=== PATIENT | female | born 1980 ===

== ENCOUNTER → 2022-11-26 12:00 | Outpatient (CLI) | payer OTHER, SELFPAY ==
--- NOTE | 2022-11-26 12:03 | DI.RAD.S_ITS ---
PROCEDURE: XR LUMBAR SPINE 2-3V INDICATIONS: low back pain TECHNIQUE: 3 views of the lumbar spine were acquired. COMPARISON: None. FINDINGS: Bones: 5 [id number] vertebrae are present. There is normal bony alignment. No vertebral body compression fractures. No suspicious bony lesions. Soft tissues: Overlying bowel gas pattern is normal. No suspicious soft tissue calcifications. IMPRESSION: No compression fracture or spondylolisthesis in lumbar spine. Dictated by: Chung Lang M.D. on 11/26/2022 at 13:42 Approved by: Chung Lang M.D. on 11/26/2022 at 13:46
--- NOTE | 2022-11-26 12:03 | DI.RAD.S_ITS ---
PROCEDURE: XR HIP W PEL IF DONE RT 2V INDICATIONS: rt hip pain TECHNIQUE: AP pelvis with lateral view(s) of the right hip(s). COMPARISON: None. FINDINGS: Bones: No fractures or dislocations. Pelvic ring appears intact. No suspicious bony lesions. Soft tissues: The visualized bowel gas pattern is normal. No suspicious soft tissue calcifications. Intrauterine device is noted. IMPRESSION: Unremarkable radiographic examination of right hip and pelvis. If indicated, MRI of hip can be done for evaluation of internal derangement. Dictated by: Chung Lang M.D. on 11/26/2022 at 13:42 Approved by: Chung Lang M.D. on 11/26/2022 at 13:42
[2022-11-26 13:35] LABS: Add Manual Diff / Slide Review NO; Basophils Absolute Auto 0 /uL (0-100); Basophils Percent Auto 0.5 % (0-2); Eosinophils Absolute Auto 100 /uL (0-450); Eosinophils Percent Auto 1.3 % (2-4); Hematocrit 41.4 % (36-46); Hemoglobin 13.9 g/dL (12.0-16.0); Lymphocytes Absolute Auto 1700 /uL (1100-4500); Lymphocytes Percent Auto 21.8 % (25-40); Mean Corpuscular HGB Conc 33.5 % (30-36); Mean Corpuscular Hemoglobin 31.2 PG (26-34); Mean Corpuscular Volume 93.1 fL (80-100); Monocytes Absolute Auto 400 /uL (0-900); Neutrophils Absolute Auto 5500 /uL (1500-7000); Neutrophils Percent Auto 71.4 % (50-75); Platelet Count 255 X10^3/uL (150-400); Red Blood Cell Count 4.45 X10^6/uL (4.0-5.2); Red Cell Distribution Width 13.5 % (11.6-14.8); White Blood Cell Count 7.7 X10^3/uL (4.5-11.0)
[2022-11-26 13:43] LABS: Alanine Aminotransferase 25 IU/L (<35); Albumin 4.3 g/dL (3.5-5.0); Albumin Globulin Ratio 1.2 (1.0-2.8); Alkaline Phosphatase 87 U/L (38-126); Aspartate Aminotransferase 28 IU/L (14-36); BUN Creatinine Ratio 13.6 (6-22); Bilirubin Total 0.3 mg/dL (0.2-1.3); Blood Urea Nitrogen 8 mg/dL (7-17); Calcium 8.6 mg/dL (8.4-10.2); Carbon Dioxide 28 mmol/L (22-32); Chloride 102 mmol/L (98-107); Cholesterol 229 mg/dL (140-199); Estimated Glomerular Filt Rate > 60 mL/min (>60); Globulin 3.5 g/dL (1.7-4.1); Glucose 107 mg/dL (70-100); HDL Cholesterol 59 mg/dL (40-60); HEMOLYSIS < 15 (0-50); LDL Cholesterol Calculated 144 mg/dL (<100); Potassium 3.7 mmol/L (3.4-5.1); Sodium 137 mmol/L (137-145); Total Protein 7.8 g/dL (6.3-8.2); Triglycerides 130 mg/dL (35-150)
[2022-11-26 13:58] LABS: Prolactin 14.1 ng/mL (3.0-18.6)
[2022-11-26 14:14] LABS: TSH w/ Reflex to FT4 2.41 uIU/mL (0.47-4.68)
[2022-11-26 14:38] LABS: Pregnancy Test Urine Negative (Negative)
[2022-11-27 07:10] LABS: Labcorp Hemoglobin (Hb) A1c 5.4 % (4.8-5.6)
== END ==
PROVIDERS: PCP Family Medicine; Referring Provider Family Medicine; Visit Provider Family Medicine
DX: M25.551 Pain in right hip (principal); M54.50 Low back pain, unspecified; E66.9 Obesity, unspecified; N64.52 Nipple discharge; N92.0 Excessive and frequent menstruation with regular cycle; R53.83 Other fatigue; N64.59 Other signs and symptoms in breast
CPT/HCPCS: 36415; 72100; 73502; 80053; 80061; 81025; 83036; 84146; 84443; 85025

== ENCOUNTER → 2022-12-14 10:04 | Outpatient (CLI) | payer OTHER, SELFPAY ==
--- NOTE | 2022-12-14 10:05 | DI.MG.S_ITS ---
BILATERAL DIGITAL DIAGNOSTIC MAMMOGRAM 3D/2D: 12/14/2022 CLINICAL: Baseline exam. No prior exams were available for comparison. Both breasts are heterogeneously dense, which may obscure small masses (category c / 51-75% glandular tissue). No significant masses, calcifications, or other findings are seen in either breast. IMPRESSION: INCOMPLETE: NEEDS ADDITIONAL IMAGING EVALUATION There is no abnormality seen in either breast to correspond with the non-bloody discharge from the nipple, however, ultrasound is recommended. Based on the Tyrer Cuzick model (a risk assessment model) the patient's lifetime risk is 15.1% and her 10 year risk is 2.5%. According to the ACR, ACS, and NCCN guidelines, an annual breast MRI exam along with mammogram is recommended if the patient's lifetime risk is 20% or greater. This exam was interpreted at Station ID: [id number]. NOTE: For mammograms, a report in lay terms will be sent to the patient. Approximately 15% of breast malignancies will not be visualized mammographically. In the management of a palpable breast mass, a negative mammogram must not discourage biopsy of a clinically suspicious lesion. Electronically Signed By: Tu Chong M.D. lc/:12/14/2022 11:12:17 ACR BI-RADS Category 0: Incomplete [id number]
--- NOTE | 2022-12-14 10:05 | DI.US.S_ITS ---
ULTRASOUND OF LEFT BREAST: 12/14/2022 CLINICAL: Nipple discharge mastodynia. Comparison is made to exam dated: 12/14/2022 mammogram - [facility]. Color flow and real-time ultrasound of the left breast were performed. Mittal scale images of the real-time examination were reviewed. There is a possible 0.3 cm x 0.3 cm x 0.2 cm micro cyst in the left breast central to the nipple in the retroareolar region. This correlates as an incidental finding. Another 5mm septated benign cyst is seen in the retroareolar region. IMPRESSION: PROBABLY BENIGN The possible 0.3 cm x 0.3 cm x 0.2 cm micro cyst in the left breast resembles apocrine metaplasia and is probably benign. A follow-up ultrasound in 6 months is recommended. This is incidental. There is no abnormality seen in the left breast to correspond with the non-bloody discharge from the nipple, however, clinical correlation and clinical followup are recommended. A follow-up ultrasound in 6 months is recommended to demonstrate stability. This exam was interpreted at Station ID: [id number]. Electronically Signed By: Tu Chong M.D. lc/:12/14/2022 11:14:10 letter sent: Followup Recommended Ultrasound BI-RADS: 3 Probably benign
--- NOTE | 2022-12-14 10:05 | DI.US.S_ITS ---
ULTRASOUND OF RIGHT BREAST: 12/14/2022 CLINICAL: Nipple discharge - mastodynia. Comparison is made to exam dated: 12/14/2022 mammogram - [facility]. Color flow and real-time ultrasound of the right breast were performed. Mittal scale images of the real-time examination were reviewed. No significant abnormalities were seen sonographically in the right breast. IMPRESSION: NEGATIVE There is no sonographic evidence of malignancy. There is no abnormality seen in the right breast to correspond with the non-bloody discharge from the nipple, however, clinical correlation and clinical followup are recommended. This exam was interpreted at Station ID: [id number]. Electronically Signed By: Tu Chong M.D. lc/:12/14/2022 11:14:56 letter sent: Clinical Evaluation Ultrasound BI-RADS: 1 Negative
== END ==
PROVIDERS: Family Provider Family Medicine; PCP Family Medicine; Referring Provider Family Medicine; Visit Provider Family Medicine
DX: N64.4 Mastodynia (principal); N63.0 Unspecified lump in unspecified breast; N64.52 Nipple discharge; R92.2 Inconclusive mammogram
CPT/HCPCS: 76642; 77066; G0279

== ENCOUNTER 2023-02-15 09:00 | Outpatient (RCR) | payer OTHER, SELFPAY ==
--- NOTE | 2023-01-14 11:00 | PT.OIE ---
Current Diagnoses Pain in right hip (01/14/23) Stiffness of right hip, not elsewhere classified (01/14/23) Stiffness of other specified joint, not elsewhere classified (01/14/23) Low back pain, unspecified (01/14/23) Muscle weakness (generalized) (01/14/23) Past Medical History (Last Updated 12/24/22 @ 19:55 by Dorina Zuñiga) Allergies Anxiety Chronic back pain Depression Eczema Hemorrhoid (~2009) Herpes Irregular menstrual cycle IUD (intrauterine device) in place Psoriasis Rosacea Past Surgical History (Last Updated 12/24/22 @ 19:55 by Dorina Zuñiga) Anesthesia History of cholecystectomy (~2009) History of surgery on arm (~2018) Tumor (~1996) Visit Care Team Role Provider Type Chris Rod DO Attending Provider Physician Family Provider Primary Care Provider Referring Provider Specialty: Family Practice Address: [address] [place] [address], [address], [facility] Email: [email or web address] Physical Therapy Initial Evaluation PT-OP-A Visit Information Start: 01/14/23 17:19 Freq: Status: Active Protocol: Document 01/14/23 10:15 DCW (Rec: 01/14/23 17:30 DCW [id number]) Out-Patient Physical Therapy Visit Information Visit Information Visit Type Initial Evaluation Visit Start Time 10:15 Visit Stop Time 11:00 Total Visit Minutes 45 Visit Number 1 Number of FIELD MAP TECHNICIAN Visits 0 Evaluation Information Evaluation Date 01/14/23 PT-OP-B Current Condition Start: 01/14/23 17:19 Freq: Status: Active Protocol: Document 01/14/23 10:15 DCW (Rec: 01/14/23 17:30 DC [id number]) Current Condition History of Current Condition Onset Date Multi-year history Current Complaints Low back and right lateral hip pain History of Current Condition Pt is a 42 year old female presenting with a multi-year history of low back and hip pain, largely worsening over the past five years, following the of her daughter. Notes she is not really limited in her participation in activities, but then notes she is unable to do planks due to back pain, and is limited to running ~1 mile, down from her prior usual of 4-5 miles. Stretching does help her feel somewhat better, and notes she has less tightness when up and moving around, but tightens up as soon as she sits down. Already performs a lot of stretching, including hamstring stretches, seated figure-4s, butterfly stretch, lunges, downward dogs, and cat /cow. Does note that she was diagnosed with a ruptured disc , she believes it is the L5-S1 disc, which happened years ago, but there was no specific injury. PT-OP-C Subjective Start: 01/14/23 17:19 Freq: Status: Active Protocol: Document 01/14/23 10:15 DCW (Rec: 01/14/23 17:30 DCW [id number]) OP-PT Subjective Patient Comments Patient Comments Going from sitting to lying and then getting back up is really the worst on my back. Patient Reported Progress Worse Patient Questionnaires Oswestry Low Back Index Oswestry Score 11/50 = 22% Oswestry Impairment 20 to 39% Impaired (Score 20- 39) PT-OP-F Manual Assessment Start: 01/14/23 17:19 Freq: Status: Active Protocol: Document 01/14/23 10:15 DCW (Rec: 01/15/23 14:05 DCW [id number]) Manual Assessments Soft Tissue Assessment Soft Tissue Mobility Assessment Tenderness to palpation 3/4: Wincing and withdraw along right ITB, piriformis, hip flexors, lumbar paraspinals Joint Mobility Assessment Joint Mobility Assessment Wincing and withdraw and hypomobility with P->A mobiolizations of L4, L5. PT-OP-K Range of Motion Start: 01/14/23 17:19 Freq: Status: Active Protocol: Document 01/14/23 10:15 DCW (Rec: 01/15/23 14:05 DCW [id number]) Lumbar Spine Range of Motion Lumbar Spine Active Degrees Testing Position Standing Flexion 60 Extension 15 Lateral Flexion Left 47 Lateral Flexion Right 50 ROM Limitations Soft Tissue Tightness,Muscle Weakness,Muscle Tone,Pain Comments Lateral flexion measured in cm from fingertips to floor Pain in right lateral hip with left lateral flexion PT-OP-L Special Tests Start: 01/14/23 17:19 Freq: Status: Active Protocol: Document 01/14/23 10:15 DCW (Rec: 01/15/23 14:05 DCW [id number]) Special Tests Lumbar Spine Special Tests Vertical Spine Loading Test Results Negative Straight Leg Raise Test Results Negative Slump Test Results Negative Manual Traction Test Results Negative Compression Test Results Negative A-P Shearing Test Results Negative Hip Special Tests Mariana's Test Test Results Positive R CORTEZ Test Results Positive R ipsilateral pain in lateral hip, low back PT-OP-Q Treatments Start: 01/14/23 17:19 Freq: Status: Active Protocol: Document 01/14/23 10:15 DCW (Rec: 01/14/23 17:33 DCW [id number]) Therapeutic Exercises Prone Exercises Piriformis stretch Prone Exercise Name Modified pigeon piriformis stretch Side right Standing Exercises Pallof press Standing Exercise Name Pallof press Resistance Lv 3 ITB stretch Standing Exercise Name ITB wall stretch Side right PT-OP-T Assessment and Plan Start: 01/14/23 17:19 Freq: Status: Active Protocol: Document 01/14/23 10:15 DCW (Rec: 01/15/23 15:33 DCW [id number]) Physical Therapy Assessment Rehab Potential Rehabilitation Potential Good Evaluation Complexity Number of Personal Factors/Comorbidities 1-2 Number of Body Systems Impaired 3 Clinical Presentation at Evaluation Unstable Impairments Impairments Activity Tolerance,Functional Activities,Functional Mobility ,Pain,ROM,Soft Tissue Mobility ,Tone Goals Three Impairment Pt limited to 1-1.5 miles running Senior Care Goal (LTG) Pt to return to prior functional level of 4-5 mile runs without increased hip or back pain. LTG Duration 04/14/23 Two Impairment Moderate tone in tight piriformis, ITB/TFL Senior Care Goal (LTG) Pt to decrease hip and lumbar tone in order to improve lumbar extension to at least 20? LTG Duration 04/14/23 One Impairment Pt does not have an appropriate home exercise program Short Term Goal (STG) Pt to be independent and compliant with an appropriate home exercise program STG Duration 03/01/23 Assessment Summary Assessment Pt presents with signs and symptoms consistent with referring diagnosis. Presents with mild limitations in lumbar mobility, and moderate increased tone in right hip, especially in her TFL/ITB, Piriformis, and hip flexors. Pt will likely benefit from skilled therapy focusing on STM, flexibility, joint mobilizations, hip and core strengthening, and return to prior activity level. Pt history is complicated by self -reported history of a lumbar disc rupture, she believes in the area of L5-S1. Physical Therapy Plan Frequency and Duration Frequency of Treatment 2x/Week Plan of Care Start Date 01/14/23 Plan of Care End Date 04/14/23 Therapeutic Interventions Therapeutic Interventions Gait Training,Home Exercise Program,Joint Mobilizations, Manual Therapy,Neuromuscular Re-education,Patient/Caregiver Education,Sensory Integration ,Soft Tissue Mobilization, Therapeutic Activities, Therapeutic Exercises Modalities Cold Pack/Ice Massage,Electric Stimulation,Hot Packs, Ultrasound Next Visit Focus/Plan Next Note Type Treatment Note Next Visit Plan STM/stretching, core strengthening, joint mobilizations, STM
--- NOTE | 2023-01-14 11:00 | PT.OPPOC ---
Physical, Occupational & Speech Therapy At [facility] Current Diagnoses Pain in right hip (01/14/23) Stiffness of right hip, not elsewhere classified (01/14/23) Stiffness of other specified joint, not elsewhere classified (01/14/23) Low back pain, unspecified (01/14/23) Muscle weakness (generalized) (01/14/23) Visit Care Team Role Provider Type Chris Rod DO Attending Provider Physician Family Provider Primary Care Provider Referring Provider Specialty: [facility] Practice Address: [address] [place] [address], [address], [facility] Email: [email or web address] Plan Of Care PT-OP-T Assessment and Plan Start: 01/14/23 17:19 Freq: Status: Active Protocol: Document 01/14/23 10:15 DCW (Rec: 01/15/23 15:33 DCW [id number]) Physical Therapy Assessment Rehab Potential Rehabilitation Potential Good Evaluation Complexity Number of Personal Factors/Comorbidities 1-2 Number of Body Systems Impaired 3 Clinical Presentation at Evaluation Unstable Impairments Impairments Activity Tolerance,Functional Activities,Functional Mobility ,Pain,ROM,Soft Tissue Mobility ,Tone Goals Three Impairment Pt limited to 1-1.5 miles running Mitochondrial Disorders Counselor Goal (LTG) Pt to return to prior functional level of 4-5 mile runs without increased hip or back pain. LTG Duration 04/14/23 Two Impairment Moderate tone in tight piriformis, ITB/TFL Shelter Goal (LTG) Pt to decrease hip and lumbar tone in order to improve lumbar extension to at least 20? LTG Duration 04/14/23 One Impairment Pt does not have an appropriate home exercise program Short Term Goal (STG) Pt to be independent and compliant with an appropriate home exercise program STG Duration 03/01/23 Assessment Summary Assessment Pt presents with signs and symptoms consistent with referring diagnosis. Presents with mild limitations in lumbar mobility, and moderate increased tone in right hip, especially in her TFL/ITB, Piriformis, and hip flexors. Pt will likely benefit from skilled therapy focusing on STM, flexibility, joint mobilizations, hip and core strengthening, and return to prior activity level. Pt history is complicated by self -reported history of a lumbar disc rupture, she believes in the area of L5-S1. Physical Therapy Plan Frequency and Duration Frequency of Treatment 2x/Week Plan of Care Start Date 01/14/23 Plan of Care End Date 04/14/23 Therapeutic Interventions Therapeutic Interventions Gait Training,Home Exercise Program,Joint Mobilizations, Manual Therapy,Neuromuscular Re-education,Patient/Caregiver Education,Sensory Integration ,Soft Tissue Mobilization, Therapeutic Activities, Therapeutic Exercises Modalities Cold Pack/Ice Massage,Electric Stimulation,Hot Packs, Ultrasound Next Visit Focus/Plan Next Note Type Treatment Note Next Visit Plan STM/stretching, core strengthening, joint mobilizations, STM Plan of Care Dates Plan of Care Start Date 01/14/23 Plan of Care End Date 04/14/23 Electronically Signed by: Sourav White, PT 01/15/23 1732 If you are in agreement with this Plan of Care, please return a signed and dated copy. I have reviewed this Plan of Care and certify that the skilled therapy services above are required to meet the patient?s needs. Physician Signature Date Printed Name and Credentials Clinical Instructor Signature Printed Name and Credentials
--- NOTE | 2023-01-17 13:30 | PT.OTN ---
Current Diagnoses Pain in right hip (01/17/23) Stiffness of right hip, not elsewhere classified (01/17/23) Stiffness of other specified joint, not elsewhere classified (01/17/23) Low back pain, unspecified (01/17/23) Muscle weakness (generalized) (01/17/23) Physical Therapy Treatment Note PT-OP-A Visit Information Start: 01/14/23 17:19 Freq: Status: Active Protocol: Document 01/17/23 12:50 SP (Rec: 01/17/23 14:07 SP [id number]) Out-Patient Physical Therapy Visit Information Visit Information Visit Type Treatment Note Visit Start Time 12:50 Visit Stop Time 13:30 Total Visit Minutes 40 Visit Number 2 Number of BODY FORMER Visits 1 Evaluation Information Evaluation Date 01/14/23 PT-OP-B Current Condition Start: 01/14/23 17:19 Freq: Status: Active Protocol: Document 01/14/23 10:15 DCW (Rec: 01/14/23 17:30 DCW [id number]) Current Condition History of Current Condition Onset Date Multi-year history Current Complaints Low back and right lateral hip pain History of Current Condition Pt is a 42 year old female presenting with a multi-year history of low back and hip pain, largely worsening over the past five years, following the of her daughter. Notes she is not really limited in her participation in activities, but then notes she is unable to do planks due to back pain, and is limited to running ~1 mile, down from her prior usual of 4-5 miles. Stretching does help her feel somewhat better, and notes she has less tightness when up and moving around, but tightens up as soon as she sits down. Already performs a lot of stretching, including hamstring stretches, seated figure-4s, butterfly stretch, lunges, downward dogs, and cat /cow. Does note that she was diagnosed with a ruptured disc , she believes it is the L5-S1 disc, which happened years ago, but there was no specific injury. PT-OP-C Subjective Start: 01/14/23 17:19 Freq: Status: Active Protocol: Document 01/17/23 12:50 SP (Rec: 01/17/23 14:07 SP [id number]) OP-PT Subjective Patient Comments Patient Comments Pt reports did well post last tx and stretching given for HEP. R hip pain worse sit to long, stationary stand >10 min ache and pain. PT-OP-F Manual Assessment Start: 01/14/23 17:19 Freq: Status: Active Protocol: Document 01/14/23 10:15 DCW (Rec: 01/15/23 14:05 DCW [id number]) Manual Assessments Soft Tissue Assessment Soft Tissue Mobility Assessment Tenderness to palpation 3/4: Wincing and withdraw along right ITB, piriformis, hip flexors, lumbar paraspinals Joint Mobility Assessment Joint Mobility Assessment Wincing and withdraw and hypomobility with P->A mobiolizations of L4, L5. PT-OP-K Range of Motion Start: 01/14/23 17:19 Freq: Status: Active Protocol: Document 01/14/23 10:15 DCW (Rec: 01/15/23 14:05 DCW [id number]) Lumbar Spine Range of Motion Lumbar Spine Active Degrees Testing Position Standing Flexion 60 Extension 15 Lateral Flexion Left 47 Lateral Flexion Right 50 ROM Limitations Soft Tissue Tightness,Muscle Weakness,Muscle Tone,Pain Comments Lateral flexion measured in cm from fingertips to floor Pain in right lateral hip with left lateral flexion PT-OP-L Special Tests Start: 01/14/23 17:19 Freq: Status: Active Protocol: Document 01/14/23 10:15 DCW (Rec: 01/15/23 14:05 DCW [id number]) Special Tests Lumbar Spine Special Tests Vertical Spine Loading Test Results Negative Straight Leg Raise Test Results Negative Slump Test Results Negative Manual Traction Test Results Negative Compression Test Results Negative A-P Shearing Test Results Negative Hip Special Tests Mariana's Test Test Results Positive R CORTEZ Test Results Positive R ipsilateral pain in lateral hip, low back PT-OP-Q Treatments Start: 01/14/23 17:19 Freq: Status: Active Protocol: Document 01/17/23 12:50 SP (Rec: 01/17/23 14:07 SP [id number]) Therapeutic Exercises Supine Exercises Jacek stretch Supine Exercise Name reviewed self stretch performs home helpful Side right Reps/Minutes 20SH Comments cued/ ed TA draw in/PPT for no LB recruitment- good response FIg 4 Supine Exercise Name trialed in PT Side right Equipment Used R foot over opp knee/thigh Reps/Minutes 10SH- cued TA/PPT neutral LS Comments good anterolateral stretch at first then back started to hurt piriformis stretch Supine Exercise Name trialed in PT Side right Reps/Minutes 30SH Comments good posterolateral hip stretch vs pigeon pose Prone Exercises Piriformis stretch Prone Exercise Name Modified pigeon piriformis stretch- HEP reviewed Side right Reps/Minutes 20 SH Comments good feedback stretch Sidelying Exercises openbook Sidelying Exercise Name review a self stretch warm up am Side right Reps/Minutes x5 Comments good decrease back tension Standing Exercises Pallof press Standing Exercise Name Pallof press-HEP reviewed Resistance Lv 3 green Reps/Minutes 15 reps each side Comments cued soft knee, elongated posture press outfrom navel, TA fac ITB stretch Standing Exercise Name ITB wall stretch Side right Reps/Minutes 20 SH x2 Comments Ed various angles for comfort stretch, not deep jt discomfort. Manual Therapy Treatment Soft Tissue Mobilization R hip Body Location R piriformis, TFL,ITB Mobilization Type Strumming,Sustained Pressure, Other Intensity/Depth Moderate Body Position L Sidelying Comments manual strumming and use MWM clamshell/reverse clamshell, rolling pin ITB * good feedback response Joint Mobilizations R hip Joint sustained holds with strap/ towel Direction lateral, inferolateral ( piriformis position) Grade II Body Position Hooklying Reps/Duration 2 min total Comments MWM with hip IR Self-Care/Home Management Treatment Education Other Education Extra time spent ed and use pillow support during sidelying and supine for R hip and LB support. Side: pillows under head, lateral upper ribcage, between BUE and BLEs, anterior/post hip (while on R , not needed L); supine: cascade built up pillows under ischialtuberosity and to calves into hooklying- good feedback response decrease R hip pain. Added clamshell & reverse clamshell. PT-OP-T Assessment and Plan Start: 01/14/23 17:19 Freq: Status: Active Protocol: Document 01/17/23 12:50 SP (Rec: 01/17/23 14:07 SP [id number]) Physical Therapy Assessment Goals Three Impairment Pt limited to 1-1.5 miles running Halfway Goal (LTG) Pt to return to prior functional level of 4-5 mile runs without increased hip or back pain. LTG Duration 04/14/23 Two Impairment Moderate tone in tight piriformis, ITB/TFL Halfway Goal (LTG) Pt to decrease hip and lumbar tone in order to improve lumbar extension to at least 20? LTG Duration 04/14/23 One Impairment Pt does not have an appropriate home exercise program Short Term Goal (STG) Pt to be independent and compliant with an appropriate home exercise program STG Duration 03/01/23 Assessment Summary Assessment Pt good feedback response to manual and ed with performance of self massage use ball wall and stretching review. Pt reports use pillow support in various positions helped comfort to R hip for sleeping and added clamshell/reverse clamshell to HEP today for support strengthening with good feedback painfree and muscle tiring. Pt reports hopes to get more exercises to help strengthen and decrease deeper R hip pain standing/ sitting to do daily chores. Physical Therapy Plan Frequency and Duration Frequency of Treatment 2x/Week Plan of Care Start Date 01/14/23 Plan of Care End Date 04/14/23 Therapeutic Interventions Therapeutic Interventions Gait Training,Home Exercise Program,Joint Mobilizations, Manual Therapy,Neuromuscular Re-education,Patient/Caregiver Education,Sensory Integration ,Soft Tissue Mobilization, Therapeutic Activities, Therapeutic Exercises Modalities Cold Pack/Ice Massage,Electric Stimulation,Hot Packs, Ultrasound Next Visit Focus/Plan Next Note Type Treatment Note Next Visit Plan Recheck clamshell, reverse clamshell added last. tx POC: STM/stretching, core strengthening, joint mobilizations, STM
--- NOTE | 2023-01-30 10:00 | PT.OTN ---
Current Diagnoses Pain in right hip (01/30/23) Stiffness of right hip, not elsewhere classified (01/30/23) Stiffness of other specified joint, not elsewhere classified (01/30/23) Low back pain, unspecified (01/30/23) Muscle weakness (generalized) (01/30/23) Physical Therapy Treatment Note PT-OP-A Visit Information Start: 01/14/23 17:19 Freq: Status: Active Protocol: Document 01/30/23 09:05 SP (Rec: 01/30/23 10:04 SP [id number]) Out-Patient Physical Therapy Visit Information Visit Information Visit Type Treatment Note Visit Note Youth son attended tx, quiet in chair. Visit Start Time 09:05 Visit Stop Time 10:00 Total Visit Minutes 55 Visit Number 3 Number of BUSINESS SEGMENT MANAGER Visits 2 Evaluation Information Evaluation Date 01/14/23 PT-OP-B Current Condition Start: 01/14/23 17:19 Freq: Status: Active Protocol: Document 01/14/23 10:15 DCW (Rec: 01/14/23 17:30 DCW [id number]) Current Condition History of Current Condition Onset Date Multi-year history Current Complaints Low back and right lateral hip pain History of Current Condition Pt is a 42 year old female presenting with a multi-year history of low back and hip pain, largely worsening over the past five years, following the of her daughter. Notes she is not really limited in her participation in activities, but then notes she is unable to do planks due to back pain, and is limited to running ~1 mile, down from her prior usual of 4-5 miles. Stretching does help her feel somewhat better, and notes she has less tightness when up and moving around, but tightens up as soon as she sits down. Already performs a lot of stretching, including hamstring stretches, seated figure-4s, butterfly stretch, lunges, downward dogs, and cat /cow. Does note that she was diagnosed with a ruptured disc , she believes it is the L5-S1 disc, which happened years ago, but there was no specific injury. PT-OP-C Subjective Start: 01/14/23 17:19 Freq: Status: Active Protocol: Document 01/30/23 09:05 SP (Rec: 01/30/23 10:04 SP [id number]) OP-PT Subjective Patient Comments Patient Comments Pt arrives in back pain 5-6/10 with stiff walking, lateral wt shifting gait. She stated had to stand for approx 1-1.5 hrs at son's baseball practice , bleachers were wet so couldn 't sit. She tried stretching and hot shower to help. PT-OP-F Manual Assessment Start: 01/14/23 17:19 Freq: Status: Active Protocol: Document 01/14/23 10:15 DCW (Rec: 01/15/23 14:05 DCW [id number]) Manual Assessments Soft Tissue Assessment Soft Tissue Mobility Assessment Tenderness to palpation 3/4: Wincing and withdraw along right ITB, piriformis, hip flexors, lumbar paraspinals Joint Mobility Assessment Joint Mobility Assessment Wincing and withdraw and hypomobility with P->A mobiolizations of L4, L5. PT-OP-K Range of Motion Start: 01/14/23 17:19 Freq: Status: Active Protocol: Document 01/14/23 10:15 DCW (Rec: 01/15/23 14:05 DCW [id number]) Lumbar Spine Range of Motion Lumbar Spine Active Degrees Testing Position Standing Flexion 60 Extension 15 Lateral Flexion Left 47 Lateral Flexion Right 50 ROM Limitations Soft Tissue Tightness,Muscle Weakness,Muscle Tone,Pain Comments Lateral flexion measured in cm from fingertips to floor Pain in right lateral hip with left lateral flexion PT-OP-L Special Tests Start: 01/14/23 17:19 Freq: Status: Active Protocol: Document 01/14/23 10:15 DCW (Rec: 01/15/23 14:05 DCW [id number]) Special Tests Lumbar Spine Special Tests Vertical Spine Loading Test Results Negative Straight Leg Raise Test Results Negative Slump Test Results Negative Manual Traction Test Results Negative Compression Test Results Negative A-P Shearing Test Results Negative Hip Special Tests [place]'s Test Test Results Positive R CORTEZ Test Results Positive R ipsilateral pain in lateral hip, low back PT-OP-Q Treatments Start: 01/14/23 17:19 Freq: Status: Active Protocol: Document 01/30/23 09:05 SP (Rec: 01/30/23 10:04 SP [id number]) Therapeutic Exercises Supine Exercises TA KFO Supine Exercise Name TA initiated in PT Side bilateral Reps/Minutes x10 Comments cued PPT & TA good response tolerant range segmental bridge Supine Exercise Name reviewed self HEP performed help back loosen up Reps/Minutes x2 reps Comments improved ROM and helped am at home august Supine Exercise Name initiated in PT Reps/Minutes 10 reps alternating BLE Comments cued PPT, slow movement- initial lift each LE pop in R hip then painfree LTR Supine Exercise Name initiated in PT for lumbar ROM Side bilateral Reps/Minutes x10, last 4 reps hold for stretch FIg 4 Supine Exercise Name reviewed/add for HEP Side right Equipment Used R foot over opp knee/thigh Reps/Minutes 10SH- cued TA/PPT neutral LS Comments good anterolateral stretch & ok on hip/back piriformis stretch Supine Exercise Name reviewed/add for HEP Side right Reps/Minutes 30SH Comments good posterolateral hip stretch Prone Exercises pigeon pose Prone Exercise Name recheck future appt, self stretch Manual Therapy Treatment Soft Tissue Mobilization back Body Location B QL, ES Comments good response R hip Body Location R>L piriformis Mobilization Type Strumming,Sustained Pressure, Other Intensity/Depth Moderate Body Position Prone Comments manual strumming,MWM PROM hip IR/ ER Manual Traction LS Details w/ strap, unilateral long axis pull Body Position Hooklying Comments w/ strap sustained distraction the MWM pelvic tilt small range good feedback response, long axis pull good response will ask help home. PT-OP-R Modalities Start: 01/30/23 16:25 Freq: Status: Active Protocol: Document 01/30/23 09:05 SP (Rec: 01/30/23 16:26 SP [id number]) Electric Stimulation Electric Stimulation IFC Body Location L2-5 Duration (Minutes) 10 Intensity 9 High/Low High Cycle Continuous Patient Position Sitting Combined With Heat/Cold Hot Pack Comments Good feedback response, feels good decreased back pain end tx. PT-OP-T Assessment and Plan Start: 01/14/23 17:19 Freq: Status: Active Protocol: Document 01/30/23 09:05 SP (Rec: 01/30/23 10:04 SP [id number]) Physical Therapy Assessment Goals Three Impairment Pt limited to 1-1.5 miles running Retirement Goal (LTG) Pt to return to prior functional level of 4-5 mile runs without increased hip or back pain. LTG Duration 04/14/23 Two Impairment Moderate tone in tight piriformis, ITB/TFL Retirement Goal (LTG) Pt to decrease hip and lumbar tone in order to improve lumbar extension to at least 20? LTG Duration 04/14/23 One Impairment Pt does not have an appropriate home exercise program Short Term Goal (STG) Pt to be independent and compliant with an appropriate home exercise program STG Duration 03/01/23 Assessment Summary Assessment Pt responded well to STMs, manual traction, stretching review and added AROM/basic core fac exercises to decrease back tension and increase abdominal bracing support. Education provided for log roll technique to allow spinal alignment support sit<> supine, sit<>prone. Pt accepted suggestion for ES and MHP end tx for pain reduction support with overall pain reduction 5-6 to 2/10 leaving. I feel a whole lot better. Pt good understandind ther ex today and declined HOs. Cued for allow arm swing walking with TA awareness but trying to allow segmental mobility, good response and demonstration TS, LS more rotation with arm swing leaving. Physical Therapy Plan Frequency and Duration Frequency of Treatment 2x/Week Plan of Care Start Date 01/14/23 Plan of Care End Date 04/14/23 Therapeutic Interventions Therapeutic Interventions Gait Training,Home Exercise Program,Joint Mobilizations, Manual Therapy,Neuromuscular Re-education,Patient/Caregiver Education,Sensory Integration ,Soft Tissue Mobilization, Therapeutic Activities, Therapeutic Exercises Modalities Cold Pack/Ice Massage,Electric Stimulation,Hot Packs, Ultrasound Next Visit Focus/Plan Next Note Type Treatment Note Next Visit Plan Recheck clamshell, reverse clamshell, core supine ther ex added last couple tx. POC: STM/stretching, core strengthening, joint mobilizations, STM
--- NOTE | 2023-02-07 11:45 | PT.OTN ---
Current Diagnoses Pain in right hip (02/07/23) Stiffness of right hip, not elsewhere classified (02/07/23) Stiffness of other specified joint, not elsewhere classified (02/07/23) Low back pain, unspecified (02/07/23) Muscle weakness (generalized) (02/07/23) Physical Therapy Treatment Note PT-OP-A Visit Information Start: 01/14/23 17:19 Freq: Status: Active Protocol: Document 02/07/23 11:00 DCW (Rec: 02/07/23 11:45 DCW [id number]) Out-Patient Physical Therapy Visit Information Visit Information Visit Type Treatment Note Visit Note Youth daughter attended tx, quiet in chair. Visit Start Time 11:00 Visit Stop Time 11:45 Total Visit Minutes 45 Visit Number 4 Number of TRANSPORTATION MECHANIC Visits 0 Evaluation Information Evaluation Date 01/14/23 PT-OP-B Current Condition Start: 01/14/23 17:19 Freq: Status: Active Protocol: Document 01/14/23 10:15 DCW (Rec: 01/14/23 17:30 DCW [id number]) Current Condition History of Current Condition Onset Date Multi-year history Current Complaints Low back and right lateral hip pain History of Current Condition Pt is a 42 year old female presenting with a multi-year history of low back and hip pain, largely worsening over the past five years, following the of her daughter. Notes she is not really limited in her participation in activities, but then notes she is unable to do planks due to back pain, and is limited to running ~1 mile, down from her prior usual of 4-5 miles. Stretching does help her feel somewhat better, and notes she has less tightness when up and moving around, but tightens up as soon as she sits down. Already performs a lot of stretching, including hamstring stretches, seated figure-4s, butterfly stretch, lunges, downward dogs, and cat /cow. Does note that she was diagnosed with a ruptured disc , she believes it is the L5-S1 disc, which happened years ago, but there was no specific injury. PT-OP-C Subjective Start: 01/14/23 17:19 Freq: Status: Active Protocol: Document 02/07/23 11:00 DCW (Rec: 02/07/23 11:45 DCW [id number]) OP-PT Subjective Patient Comments Patient Comments Pt feels that her ITB has improved the most, still boths her, but not to the point it was. Back pain and lateral hip pain, however, are still bothering her quite a bit. Admits she is more sore today after trying to go for a run earlier this week, notes it was very difficult with the pain. PT-OP-F Manual Assessment Start: 01/14/23 17:19 Freq: Status: Active Protocol: Document 01/14/23 10:15 DCW (Rec: 01/15/23 14:05 DCW [id number]) Manual Assessments Soft Tissue Assessment Soft Tissue Mobility Assessment Tenderness to palpation 3/4: Wincing and withdraw along right ITB, piriformis, hip flexors, lumbar paraspinals Joint Mobility Assessment Joint Mobility Assessment Wincing and withdraw and hypomobility with P->A mobiolizations of L4, L5. PT-OP-K Range of Motion Start: 01/14/23 17:19 Freq: Status: Active Protocol: Document 01/14/23 10:15 DCW (Rec: 01/15/23 14:05 DCW [id number]) Lumbar Spine Range of Motion Lumbar Spine Active Degrees Testing Position Standing Flexion 60 Extension 15 Lateral Flexion Left 47 Lateral Flexion Right 50 ROM Limitations Soft Tissue Tightness,Muscle Weakness,Muscle Tone,Pain Comments Lateral flexion measured in cm from fingertips to floor Pain in right lateral hip with left lateral flexion PT-OP-L Special Tests Start: 01/14/23 17:19 Freq: Status: Active Protocol: Document 01/14/23 10:15 DCW (Rec: 01/15/23 14:05 DCW [id number]) Special Tests Lumbar Spine Special Tests Vertical Spine Loading Test Results Negative Straight Leg Raise Test Results Negative Slump Test Results Negative Manual Traction Test Results Negative Compression Test Results Negative A-P Shearing Test Results Negative Hip Special Tests Mar[place]'s Test Test Results Positive R CORTEZ Test Results Positive R ipsilateral pain in lateral hip, low back PT-OP-Q Treatments Start: 01/14/23 17:19 Freq: Status: Active Protocol: Document 02/07/23 11:00 DCW (Rec: 02/07/23 11:45 DCW [id number]) Therapeutic Exercises Sitting Exercises IR/ER Sitting Exercise Name Resisted hip ER/IR Side bilateral Resistance [place] Manual Therapy Treatment Soft Tissue Mobilization back Body Location B QL, ES Comments good response R hip Body Location R>L piriformis, Hip flexor Mobilization Type Strumming,Sustained Pressure, Other Intensity/Depth Moderate Body Position Prone Comments manual strumming,MWM PROM hip IR/ ER Joint Mobilizations R hip Joint sustained holds with strap Direction lateral, inferolateral ( piriformis position) Grade III Body Position Hooklying Reps/Duration 2 min total Comments MWM with hip IR Manual Traction LE Traction Details R hip /c Strap, short-axis, long-axis Body Position Supine PT-OP-R Modalities Start: 01/30/23 16:25 Freq: Status: Active Protocol: Document 01/30/23 09:05 SP (Rec: 01/30/23 16:26 SP [id number]) Electric Stimulation Electric Stimulation IFC Body Location L2-5 Duration (Minutes) 10 Intensity 9 High/Low High Cycle Continuous Patient Position Sitting Combined With Heat/Cold Hot Pack Comments Good feedback response, feels good decreased back pain end tx. PT-OP-T Assessment and Plan Start: 01/14/23 17:19 Freq: Status: Active Protocol: Document 02/07/23 11:00 DCW (Rec: 02/07/23 11:45 DCW [id number]) Physical Therapy Assessment Goals Three Impairment Pt limited to 1-1.5 miles running Care Home Goal (LTG) Pt to return to prior functional level of 4-5 mile runs without increased hip or back pain. LTG Duration 04/14/23 Two Impairment Moderate tone in tight piriformis, ITB/TFL Auto Rental Supervisor Goal (LTG) Pt to decrease hip and lumbar tone in order to improve lumbar extension to at least 20? LTG Duration 04/14/23 One Impairment Pt does not have an appropriate home exercise program Short Term Goal (STG) Pt to be independent and compliant with an appropriate home exercise program STG Duration 03/01/23 Assessment Summary Assessment Pt found substantial relief with R LE traction today, both short-axis and long-axis. Pt also noted today increased anterior hip pain and pinching , along with occasionally feeling like her hip gets stuck, and she has to move around her leg to get it unstuck. These may indicate potential labral involvement. Pt does have referral to Ortho , pt instructed to mention hip problems to ortho during appointment, may benefit from advanced imaging. Physical Therapy Plan Frequency and Duration Frequency of Treatment 2x/Week Plan of Care Start Date 01/14/23 Plan of Care End Date 04/14/23 Therapeutic Interventions Therapeutic Interventions Gait Training,Home Exercise Program,Joint Mobilizations, Manual Therapy,Neuromuscular Re-education,Patient/Caregiver Education,Sensory Integration ,Soft Tissue Mobilization, Therapeutic Activities, Therapeutic Exercises Modalities Cold Pack/Ice Massage,Electric Stimulation,Hot Packs, Ultrasound Next Visit Focus/Plan Next Note Type Treatment Note Next Visit Plan Recheck clamshell, reverse clamshell, core supine ther ex added last couple tx. POC: STM/stretching, core strengthening, joint mobilizations, STM
--- NOTE | 2023-02-11 11:46 | PT.OTN ---
Current Diagnoses Pain in right hip (02/11/23) Stiffness of right hip, not elsewhere classified (02/11/23) Stiffness of other specified joint, not elsewhere classified (02/11/23) Low back pain, unspecified (02/11/23) Muscle weakness (generalized) (02/11/23) Physical Therapy Treatment Note PT-OP-A Visit Information Start: 01/14/23 17:19 Freq: Status: Active Protocol: Document 02/11/23 11:02 DCW (Rec: 02/11/23 11:46 DCW [id number]) Out-Patient Physical Therapy Visit Information Visit Information Visit Type Treatment Note Visit Start Time 11:02 Visit Stop Time 11:45 Total Visit Minutes 43 Visit Number 5 Number of CEMETERY VAULT INSTALLER Visits 0 Evaluation Information Evaluation Date 01/14/23 PT-OP-B Current Condition Start: 01/14/23 17:19 Freq: Status: Active Protocol: Document 01/14/23 10:15 DCW (Rec: 01/14/23 17:30 DCW [id number]) Current Condition History of Current Condition Onset Date Multi-year history Current Complaints Low back and right lateral hip pain History of Current Condition Pt is a 42 year old female presenting with a multi-year history of low back and hip pain, largely worsening over the past five years, following the of her daughter. Notes she is not really limited in her participation in activities, but then notes she is unable to do planks due to back pain, and is limited to running ~1 mile, down from her prior usual of 4-5 miles. Stretching does help her feel somewhat better, and notes she has less tightness when up and moving around, but tightens up as soon as she sits down. Already performs a lot of stretching, including hamstring stretches, seated figure-4s, butterfly stretch, lunges, downward dogs, and cat /cow. Does note that she was diagnosed with a ruptured disc , she believes it is the L5-S1 disc, which happened years ago, but there was no specific injury. PT-OP-C Subjective Start: 01/14/23 17:19 Freq: Status: Active Protocol: Document 02/11/23 11:02 DCW (Rec: 02/11/23 11:46 DCW [id number]) OP-PT Subjective Patient Comments Patient Comments Pt noting everything feels about the same. PT-OP-F Manual Assessment Start: 01/14/23 17:19 Freq: Status: Active Protocol: Document 01/14/23 10:15 DCW (Rec: 01/15/23 14:05 DCW [id number]) Manual Assessments Soft Tissue Assessment Soft Tissue Mobility Assessment Tenderness to palpation 3/4: Wincing and withdraw along right ITB, piriformis, hip flexors, lumbar paraspinals Joint Mobility Assessment Joint Mobility Assessment Wincing and withdraw and hypomobility with P->A mobiolizations of L4, L5. PT-OP-K Range of Motion Start: 01/14/23 17:19 Freq: Status: Active Protocol: Document 01/14/23 10:15 DCW (Rec: 01/15/23 14:05 DCW [id number]) Lumbar Spine Range of Motion Lumbar Spine Active Degrees Testing Position Standing Flexion 60 Extension 15 Lateral Flexion Left 47 Lateral Flexion Right 50 ROM Limitations Soft Tissue Tightness,Muscle Weakness,Muscle Tone,Pain Comments Lateral flexion measured in cm from fingertips to floor Pain in right lateral hip with left lateral flexion PT-OP-L Special Tests Start: 01/14/23 17:19 Freq: Status: Active Protocol: Document 01/14/23 10:15 DCW (Rec: 01/15/23 14:05 DCW [id number]) Special Tests Lumbar Spine Special Tests Vertical Spine Loading Test Results Negative Straight Leg Raise Test Results Negative Slump Test Results Negative Manual Traction Test Results Negative Compression Test Results Negative A-P Shearing Test Results Negative Hip Special Tests [place]'s Test Test Results Positive R CORTEZ Test Results Positive R ipsilateral pain in lateral hip, low back PT-OP-Q Treatments Start: 01/14/23 17:19 Freq: Status: Active Protocol: Document 02/11/23 11:02 DCW (Rec: 02/11/23 11:46 DCW [id number]) Gym Equipment Therapeutic Ball Pelvic tilts Exercise Details Pelvic tilts/circles Ball Size/Color Green - 65 cm Body Position Sitting LTR Exercise Details LTR Ball Size/Color Red - 55 cm Body Position Supine Therapeutic Exercises Standing Exercises Hip Extension Standing Exercise Name Hip Extension Side bilateral Resistance [place] Hip Hiking Standing Exercise Name Hip Hiking Side bilateral Equipment Used 6 step Other Exercises Resisted Ambulation Other Exercise Name Resisted Ambulation Resistance [place] Manual Therapy Treatment Soft Tissue Mobilization back Body Location B QL, ES Comments good response R hip Body Location R>L Hip flexor Mobilization Type Strumming,Sustained Pressure, Other Intensity/Depth Moderate Body Position Hooklying Comments manual strumming Manual Traction LE Traction Details R hip /c Strap, short-axis, long-axis Body Position Supine PT-OP-R Modalities Start: 01/30/23 16:25 Freq: Status: Active Protocol: Document 01/30/23 09:05 SP (Rec: 01/30/23 16:26 SP [id number]) Electric Stimulation Electric Stimulation IFC Body Location L2-5 Duration (Minutes) 10 Intensity 9 High/Low High Cycle Continuous Patient Position Sitting Combined With Heat/Cold Hot Pack Comments Good feedback response, feels good decreased back pain end tx. PT-OP-T Assessment and Plan Start: 01/14/23 17:19 Freq: Status: Active Protocol: Document 02/11/23 11:02 DCW (Rec: 02/11/23 11:46 DCW [id number]) Physical Therapy Assessment Goals Three Impairment Pt limited to 1-1.5 miles running Senior Living Goal (LTG) Pt to return to prior functional level of 4-5 mile runs without increased hip or back pain. LTG Duration 04/14/23 Two Impairment Moderate tone in tight piriformis, ITB/TFL Hot Die Press Feeder Goal (LTG) Pt to decrease hip and lumbar tone in order to improve lumbar extension to at least 20? LTG Duration 04/14/23 One Impairment Pt does not have an appropriate home exercise program Short Term Goal (STG) Pt to be independent and compliant with an appropriate home exercise program STG Duration 03/01/23 Assessment Summary Assessment Pt continues to have increased pain and difficulty with any activity that creates compression through the right hip. LE traction provides some short-term pain relief. Physical Therapy Plan Frequency and Duration Frequency of Treatment 2x/Week Plan of Care Start Date 01/14/23 Plan of Care End Date 04/14/23 Therapeutic Interventions Therapeutic Interventions Gait Training,Home Exercise Program,Joint Mobilizations, Manual Therapy,Neuromuscular Re-education,Patient/Caregiver Education,Sensory Integration ,Soft Tissue Mobilization, Therapeutic Activities, Therapeutic Exercises Modalities Cold Pack/Ice Massage,Electric Stimulation,Hot Packs, Ultrasound Next Visit Focus/Plan Next Note Type Treatment Note Next Visit Plan Recheck clamshell, reverse clamshell, core supine ther ex added last couple tx. POC: STM/stretching, core strengthening, joint mobilizations, STM
--- NOTE | 2023-02-15 09:41 | PT.OTN ---
Current Diagnoses Pain in right hip (02/15/23) Stiffness of right hip, not elsewhere classified (02/15/23) Stiffness of other specified joint, not elsewhere classified (02/15/23) Low back pain, unspecified (02/15/23) Muscle weakness (generalized) (02/15/23) Physical Therapy Treatment Note PT-OP-A Visit Information Start: 01/14/23 17:19 Freq: Status: Active Protocol: Document 02/15/23 09:00 DCW (Rec: 02/15/23 09:40 DCW [id number]) Out-Patient Physical Therapy Visit Information Visit Information Visit Type Discharge Summary Visit Start Time 09:00 Visit Stop Time 09:45 Total Visit Minutes 45 Visit Number 6 Number of [employer] SUPERVISOR Visits 0 Evaluation Information Evaluation Date 01/14/23 PT-OP-B Current Condition Start: 01/14/23 17:19 Freq: Status: Active Protocol: Document 01/14/23 10:15 DCW (Rec: 01/14/23 17:30 DCW [id number]) Current Condition History of Current Condition Onset Date Multi-year history Current Complaints Low back and right lateral hip pain History of Current Condition Pt is a 42 year old female presenting with a multi-year history of low back and hip pain, largely worsening over the past five years, following the of her daughter. Notes she is not really limited in her participation in activities, but then notes she is unable to do planks due to back pain, and is limited to running ~1 mile, down from her prior usual of 4-5 miles. Stretching does help her feel somewhat better, and notes she has less tightness when up and moving around, but tightens up as soon as she sits down. Already performs a lot of stretching, including hamstring stretches, seated figure-4s, butterfly stretch, lunges, downward dogs, and cat /cow. Does note that she was diagnosed with a ruptured disc , she believes it is the L5-S1 disc, which happened years ago, but there was no specific injury. PT-OP-C Subjective Start: 01/14/23 17:19 Freq: Status: Active Protocol: Document 02/15/23 09:00 DCW (Rec: 02/15/23 09:40 DCW [id number]) OP-PT Subjective Patient Comments Patient Comments Pt reports no change in symptoms Patient Questionnaires Oswestry Low Back Index Oswestry Score 1250 = 24% Oswestry Impairment 20 to 39% Impaired (Score 20- 39) PT-OP-F Manual Assessment Start: 01/14/23 17:19 Freq: Status: Active Protocol: Document 01/14/23 10:15 DCW (Rec: 01/15/23 14:05 DCW [id number]) Manual Assessments Soft Tissue Assessment Soft Tissue Mobility Assessment Tenderness to palpation 3/4: Wincing and withdraw along right ITB, piriformis, hip flexors, lumbar paraspinals Joint Mobility Assessment Joint Mobility Assessment Wincing and withdraw and hypomobility with P->A mobiolizations of L4, L5. PT-OP-K Range of Motion Start: 01/14/23 17:19 Freq: Status: Active Protocol: Document 01/14/23 10:15 DCW (Rec: 01/15/23 14:05 DCW [id number]) Lumbar Spine Range of Motion Lumbar Spine Active Degrees Testing Position Standing Flexion 60 Extension 15 Lateral Flexion Left 47 Lateral Flexion Right 50 ROM Limitations Soft Tissue Tightness,Muscle Weakness,Muscle Tone,Pain Comments Lateral flexion measured in cm from fingertips to floor Pain in right lateral hip with left lateral flexion PT-OP-L Special Tests Start: 01/14/23 17:19 Freq: Status: Active Protocol: Document 01/14/23 10:15 DCW (Rec: 01/15/23 14:05 DCW [id number]) Special Tests Lumbar Spine Special Tests Vertical Spine Loading Test Results Negative Straight Leg Raise Test Results Negative Slump Test Results Negative Manual Traction Test Results Negative Compression Test Results Negative A-P Shearing Test Results Negative Hip Special Tests Mariana's Test Test Results Positive R CORTEZ Test Results Positive R ipsilateral pain in lateral hip, low back PT-OP-Q Treatments Start: 01/14/23 17:19 Freq: Status: Active Protocol: Document 02/15/23 09:00 DCW (Rec: 02/15/23 09:40 DCW [id number]) Gym Equipment Therapeutic Ball Pelvic tilts Exercise Details Pelvic tilts/circles Ball Size/Color Green - 65 cm Body Position Sitting LTR Exercise Details LTR Ball Size/Color Red - 55 cm Body Position Supine Therapeutic Exercises Standing Exercises Hip Extension Standing Exercise Name Hip Extension Side bilateral Resistance Green loop Hip Hiking Standing Exercise Name Hip Hiking Side bilateral Equipment Used 6 step Other Exercises Resisted Ambulation Other Exercise Name Resisted Ambulation Resistance Green loop Manual Therapy Treatment Soft Tissue Mobilization back Body Location B QL, ES Comments good response R hip Body Location R>L Hip flexor Mobilization Type Strumming,Sustained Pressure, Other Intensity/Depth Moderate Body Position Hooklying Comments manual strumming Manual Traction LE Traction Details R hip /c Strap, short-axis, long-axis Body Position Supine PT-OP-R Modalities Start: 01/30/23 16:25 Freq: Status: Active Protocol: Document 01/30/23 09:05 SP (Rec: 01/30/23 16:26 SP [id number]) Electric Stimulation Electric Stimulation IFC Body Location L2-5 Duration (Minutes) 10 Intensity 9 High/Low High Cycle Continuous Patient Position Sitting Combined With Heat/Cold Hot Pack Comments Good feedback response, feels good decreased back pain end tx. PT-OP-T Assessment and Plan Start: 01/14/23 17:19 Freq: Status: Active Protocol: Document 02/15/23 09:00 DCW (Rec: 02/15/23 09:40 DCW [id number]) Physical Therapy Assessment Goals Three Impairment Pt limited to 1-1.5 miles running Longterm Goal (LTG) Pt to return to prior functional level of 4-5 mile runs without increased hip or back pain. LTG Duration 04/14/23 Two Impairment Moderate tone in tight piriformis, ITB/TFL Longterm Goal (LTG) Pt to decrease hip and lumbar tone in order to improve lumbar extension to at least 20? LTG Duration 04/14/23 One Impairment Pt does not have an appropriate home exercise program Short Term Goal (STG) Pt to be independent and compliant with an appropriate home exercise program STG Duration 03/01/23 Assessment Summary Assessment Pt has not made any progress over the course of her skilled PT, has upcoming appointment with PCP and with ortho. Pt will be discharged from skilled PT at this time, will require a new referral in order to return. Physical Therapy Plan Frequency and Duration Frequency of Treatment 2x/Week Plan of Care Start Date 01/14/23 Plan of Care End Date 04/14/23 Therapeutic Interventions Therapeutic Interventions Gait Training,Home Exercise Program,Joint Mobilizations, Manual Therapy,Neuromuscular Re-education,Patient/Caregiver Education,Sensory Integration ,Soft Tissue Mobilization, Therapeutic Activities, Therapeutic Exercises Modalities Cold Pack/Ice Massage,Electric Stimulation,Hot Packs, Ultrasound Discharge Physical Therapy Discharge Reasons Plateau in Progress Next Visit Focus/Plan Next Note Type Discharge Summary
== END 2023-02-18 15:43 | disposition home or self-care (01) ==
LOC: PHYS 09:00
PROVIDERS: Family Provider Family Medicine; PCP Family Medicine; Referring Provider Family Medicine; Visit Provider Family Medicine
DX: M54.50 Low back pain, unspecified (principal); M25.551 Pain in right hip; M25.69 Stiffness of other specified joint, not elsewhere classified; M25.651 Stiffness of right hip, not elsewhere classified; M62.81 Muscle weakness (generalized)
CPT/HCPCS: 97014; 97110; 97140; 97162; G0283

== ENCOUNTER → 2023-04-01 15:45 | Outpatient (CLI) | payer OTHER, SELFPAY ==
--- NOTE | 2023-04-01 15:47 | DI.RAD.S_ITS ---
PROCEDURE: XR LUMBAR SPINE 2-3V INDICATIONS: Lumbar Radiculopathy TECHNIQUE: 3 views of the lumbar spine were acquired. COMPARISON: [facility], CR, XR LUMBAR SPINE 2-3V, 11/26/2022, 12:05. FINDINGS: Bones: 5 [id number] vertebrae are present. There is normal bony alignment. No acute vertebral body compression fractures. No suspicious bony lesions. No evidence for pars defects. Soft tissues: Overlying bowel gas pattern is normal. No suspicious soft tissue calcifications. IUD projects over the pelvis. Surgical clips in right upper quadrant compatible with prior cholecystectomy. IMPRESSION: Lumbar spine without acute osseous abnormalities. No evidence for pars defects. Dictated by: Lenny Mcbride M.D. on 04/01/2023 at 17:29 Approved by: Lenny Mcbride M.D. on 04/01/2023 at 17:30
== END ==
PROVIDERS: Family Provider Family Medicine; PCP Family Medicine; Referring Provider Physical Medicine & Rehabilitation; Visit Provider Physical Medicine & Rehabilitation
DX: M47.26 Other spondylosis with radiculopathy, lumbar region (principal)
CPT/HCPCS: 72100

== ENCOUNTER → 2023-05-03 18:44 | Outpatient (CLI) | payer OTHER, SELFPAY ==
--- NOTE | 2023-05-03 18:46 | DI.MRI.S_ITS ---
PROCEDURE: MR LUMBAR SPINE WO CON INDICATIONS: LUMBAR RADICULOPATHY TECHNIQUE: Noncontrast sagittal T1 spin echo and T2 fast echo, sagittal STIR, and T2 fast spin echo through the lumbar spine. In cases with scoliosis, additional coronal T2 fast spin echo may be performed. COMPARISON: [facility], CR, XR LUMBAR SPINE 2-3V, 04/01/2023, 16:03. FINDINGS: Image quality: Excellent. Alignment and Curvature: There is normal bony alignment. Bone Marrow: Marrow is of normal overall signal. No acute vertebral body compression fractures. Spinal Cord: Conus medullaris terminates at the L1-L2 level. Visualized cord demonstrates normal signal and size. Paraspinous Soft Tissues: No paravertebral masses. T12-L1: Minimal disc bulge. Mild facet hypertrophy. No canal stenosis or foraminal stenosis. L1-L2: Mild facet hypertrophy. No canal stenosis or foraminal stenosis. L2-L3: Mild facet hypertrophy. No canal stenosis or foraminal stenosis. L3-L4: Facet hypertrophy. No canal stenosis or foraminal stenosis. L4-L5: Minimal disc bulge. Facet hypertrophy. Mild canal stenosis. Mild bilateral foraminal stenosis. L5-S1: Chronic disc height loss. Disc bulge. Facet hypertrophy. Moderate bilateral foraminal narrowing with mild flattening deformity on the exiting bilateral L5 nerve roots. IMPRESSION: 1. There is underlying multilevel facet arthropathy, most notably at L4-L5 and L5-S1. 2. There is mild canal stenosis at L4-L5. 3. Moderate bilateral foraminal narrowing at L5-S1. Dictated by: Willy Cameron M.D. on 05/06/2023 at 9:29 Approved by: Willy Cameron M.D. on 05/06/2023 at 9:34
== END ==
PROVIDERS: Family Provider Family Medicine; PCP Family Medicine; Referring Provider Physical Medicine & Rehabilitation; Visit Provider Physical Medicine & Rehabilitation
DX: M47.26 Other spondylosis with radiculopathy, lumbar region (principal); M47.27 Other spondylosis with radiculopathy, lumbosacral region; M48.061 Spinal stenosis, lumbar region without neurogenic claudication; M48.07 Spinal stenosis, lumbosacral region
CPT/HCPCS: 72148

== ENCOUNTER → 2023-06-21 10:05 | Outpatient (CLI) | payer OTHER, SELFPAY ==
--- NOTE | 2023-06-21 10:06 | DI.US.S_ITS ---
ULTRASOUND OF LEFT BREAST: 06/21/2023 CLINICAL: 6 month follow-up of cysts. Comparison is made to exams dated: 12/14/2022 ultrasound and 12/14/2022 mammogram - [facility]. Color flow and real-time ultrasound of the left breast were performed. Mittal scale images of the real-time examination were reviewed. There is a 0.7 cm x 0.3 cm x 0.5 cm oval micro cyst in the left breast at 3 o'clock in the retroareolar region. This oval micro cyst is hypoechoic with internal echoes. This abnormality is more prominent and correlates as a previous incidental finding. Previously described 0.3cm possible microcyst is no longer visualized and consistent with a benign process. IMPRESSION: PROBABLY BENIGN The 0.7 cm x 0.3 cm x 0.5 cm oval micro cyst in the left breast resembles apocrine metaplasia versus cluster of microcysts and is probably benign. A follow-up bilateral mammogram and a left ultrasound in 6 months is recommended to demonstrate stability. Findings and recommendations were conveyed to the patient during today's evaluation. This exam was interpreted at Station ID: [id number]. Electronically Signed By: Lenny Mcbride M.D. aty/:06/21/2023 12:19:01 letter sent: Followup Recommended Ultrasound BI-RADS: 3 Probably benign
== END ==
LOC: US 10:05
PROVIDERS: Family Provider Family Medicine; PCP Family Medicine; Referring Provider Family Medicine; Visit Provider Family Medicine
DX: R92.8 Other abnormal and inconclusive findings on diagnostic imaging of breast (principal); N60.02 Solitary cyst of left breast
CPT/HCPCS: 76642

== ENCOUNTER 2023-07-18 10:08 | Outpatient (CLI) | payer OTHER, SELFPAY ==
[2023-07-18] VITALS (8 sets, daily range): BP systolic 123–150; BP diastolic 72–83; PULSE 73–84; RESP 11–19; TEMP 36.3; O2SAT 98–100
--- NOTE | 2023-07-18 10:45 | DI.RAD.S_ITS ---
PROCEDURE: PAIN L/SI FACET INJ/BLK 1STL INDICATIONS: LUMBAR FACET ARTHOPATHY COMPARISON: None. FINDINGS: Fluoroscopic spot filming was performed to verify placement of spinal needles at the right L4, L5 and S1 level(s), as labeled on the films. Appropriate location(s) of the needle tip(s) was confirmed by injection of iodinated contrast. IMPRESSION: Intra procedural examination demonstrating appropriate positions of the needles. Dictated by: Bean Anderson M.D. on 07/18/2023 at 13:13 Approved by: Bean Anderson M.D. on 07/18/2023 at 13:13
[2023-07-18] MEDS: MIDAZOLAM 2 MG/2 ML VIAL IV ×2 (11:32→11:36)
[2023-07-18] MEDS: BUPIVACAINE 0.5% (PF) 10 ML VIAL 2 ML INJ (11:37)
[2023-07-18] MEDS: iopamidoL 15 ML VIAL 3 ML INJ (11:38)
--- NOTE | 2023-07-18 11:48 | P.PCN_ITS ---
Date/Time/Diagnoses Date of procedure: 07/18/23 Time of procedure: 11:48 Pre-procedure diagnosis: 1. FACET ARTHROPATHY Post-procedure diagnosis: same Procedure Notes Procedure: 1. Right L4, L5 and S1 MB BLOCKS LA Indications: Ami is referred by Dr. Rod for treatment of Right Axial LBP. Physician: Michael Villasenor Total Fluoroscopy time (seconds): 8 Total sedation minutes: 12 Complications: none Procedure in detail & Post-procedure care: DESCRIPTION OF PROCEDURE Fluoroscopically guided, contrast-controlled right L4, L5 and S1 medial branch blocks with 0.5cc of 0.5% Marcaine. Following review of allergy and review of potential side effects and complications, including, but not necessarily limited to, infection, allergic reaction, local tissue breakdown, nerve injury, paralysis, stroke and possible , the patient indicated that the patient understood and agreed to proceed. An informed consent document was signed by the patient, witnessed by a nurse, and placed in the patient's chart. After review of previous anaesthesic history and IV conscious sedation the patient was deemed safe to proceed with today?s procedure with IV conscious sedation as ASA class II designation. Safety time-out was performed to confirm patient ID, procedure to be performed and site of procedure. IV sedation was accomplished with a combination of 4mg of Versed was administered by the RN after DO order, titrated to patient comfort during the course of the procedure while the patient remained responsive to all verbal commands In the prone position, following sterile prep and drape of the lumbar region, the right L4, L5 and S1 anatomical location of the medial branch of the dorsal ramus was identified fluoroscopically. Subsequently an anesthetic skin wheal using 1% lidocaine solution was initiated at each of the anatomical spots. Subsequently then a 22-gauge 3.5-inch spinal needle was atraumatically introduced and advanced under fluoroscopic guidance at each of the corresponding sites at the right L4, L5 and S1 MB. After negative aspiration, 0.2 cc of Isovue 200 was injected, confirming placement without vascular or intrathecal uptake. Subsequently then 0.5 cc of 0.5% Marcaine solution was injected at each of the corresponding sites at the right L4, L5 and S1 medial branch locations. The patient tolerated the procedure well without signs or symptoms of complications. The procedure tolerated the procedure well without signs or symptoms of complications prior to transfer to the recovery area continued monitoring without incident. Post-procedure, the patient was monitored initiating provocative activities to measure the amount of relief from block of the facetogenic pain. The patient reported a VAS of 7 prior to the procedure and a post-procedure VAS of 1. It has been a pleasure to assist in the diagnostic and therapeutic care of your patient. POST OP INSTRUCTIONS The patient was provided with a Pain Log to complete over the next several hours and subsequent days prior to the patient's follow up with the ordering physician. If the patient has universal winding machine operator relief to the solution applied, then they may be a candidate for medial branch rhizotomy. The patient is aware, was provided, once again, with a Pain Log and will follow up with the referring physician for review and clinical correlation.
== END 2023-07-18 12:06 | disposition home or self-care (01) ==
PROVIDERS: Family Provider Family Medicine; PCP Family Medicine; Referring Provider Physical Medicine & Rehabilitation; Visit Provider Physical Medicine & Rehabilitation
DX: M47.816 Spondylosis without myelopathy or radiculopathy, lumbar region (principal); M47.817 Spondylosis without myelopathy or radiculopathy, lumbosacral region
CPT/HCPCS: 64493; 64494; 99152; J2250

== ENCOUNTER 2023-09-26 13:34 | Outpatient (CLI) | payer OTHER, SELFPAY ==
[2023-09-26] VITALS (8 sets, daily range): BP systolic 120–140; BP diastolic 82–88; PULSE 69–79; RESP 13–20; TEMP 36.8; O2SAT 99–100
--- NOTE | 2023-09-26 14:00 | DI.RAD.S_ITS ---
PROCEDURE: PAIN L INTERLAMINAR/CAUDAL INJ INDICATIONS: para right L5/S1 TL RINKU COMPARISON: None. FINDINGS: Fluoroscopic spot filming was performed to verify placement of spinal needles at the L5-S1 level(s), as labeled on the films. Appropriate location(s) of the needle tip(s) was confirmed by injection of iodinated contrast. IMPRESSION: Intra procedural examination demonstrating appropriate positions of the needles. Dictated by: Bean Anderson M.D. on 09/26/2023 at 15:05 Approved by: Bean Anderson M.D. on 09/26/2023 at 15:06
[2023-09-26] MEDS: fentaNYL 100 MCG/2 ML INJ 50 MCG IV (14:38)
[2023-09-26] MEDS: MIDAZOLAM 2 MG/2 ML VIAL IV (14:38)
[2023-09-26] MEDS: iopamidoL 15 ML VIAL 3 ML INJ (14:42)
[2023-09-26] MEDS: BUPIVACAINE 0.25% (PF) VIAL 2 ML INJ (14:43)
[2023-09-26] MEDS: BETAMETHASONE 30 MG/5 ML MDV 6 MG INJ (14:43)
[2023-09-26] MEDS: DEXAMETHASONE 10 MG/ML VIAL INJ (14:43)
--- NOTE | 2023-09-26 14:49 | P.PCN_ITS ---
Date/Time/Diagnoses Date of procedure: 09/26/23 Time of procedure: 14:49 Pre-procedure diagnosis: 1. HNP WITH RADICULAR FEATURES, 2. MULTILEVEL CENTRAL STENOSIS, Post-procedure diagnosis: same Procedure Notes Procedure: 1. FLUOROSCOPICALLY GUIDED CONTRAST CONTROLLED INTERLAMINAR EPIDURAL STEROID INJECTION - L5/S1 Indications: Ami is referred by Dr. Rod for treatment of Bilateral Foraminal Stenosis L>R LE symptoms. Physician: Michael Villasenor Total Fluoroscopy time (seconds): 7 Total sedation minutes: 11 Complications: none Procedure in detail & Post-procedure care: FINDINGS Multilevel Central Spinal Stenosis with Nerve Root Compression DESCRIPTION OF PROCEDURE Fluoroscopically guided, contrast-controlled L5/S1 translaminar epidural steroid injection. Following review of allergy and review of potential side effects and complications, including, but not necessarily limited to, infection, allergic reaction, local tissue breakdown, temporary as well as permanent nerve injury, paralysis, stroke and possible , the patient indicated that the patient understood and agreed to proceed. An informed consent document was signed by the patient, witnessed by a nurse, and placed in the patient's chart. Additionally, other treatment options including modalities, medications, and physical therapy were reviewed with the patient. After review of previous anaesthesic history and IV conscious sedation the patient was deemed safe to proceed with today?s procedure with IV conscious sedation as ASA class II designation. Safety time-out was performed to confirm patient ID, procedure to be performed and site of procedure. IV sedation was accomplished with a combination of 2mg of Versed administered by the RN after DO order, titrated to patient comfort during the course of the procedure while the patient remained responsive to all verbal commands. In the prone position, following sterile prep and drape of the lumbar region, the L5/S1 translaminar space was identified fluoroscopically. The skin was anesthetized via a 25-gauge, 1.5-inch needle with 1% lidocaine solution. At this point, a 22-gauge short bevel spinal needle was atraumatically introduced and advanced under fluoroscopic guidance into the region of the L5/S1 translaminar space. Depth was confirmed on lateral view. Radiological data, including multiple fluoroscopic views of the lumbar spine, reveal a spinal needle at the L5/S1 translaminar space. Lateral views then show placement of the needle in the epidural space. Subsequent views show contrast material flowing superiorly and inferiorly in the epidural space. No vascular or intrathecal uptake is observed. At this point, using loss of resistance technique with saline and air, the epidural space was entered. This was confirmed following negative aspiration with injection of approximately 1.5cc of Isovue 200, showing excellent epidural flow without vascular or intrathecal uptake. At this point, 1 cc of 1% lidocai ne solution combined with 2cc or 10mg of dexamethasone and 6mg of betamethasone was injected without incident. The patent tolerated the procedure without signs of symptoms of complications prior to transfer to the recovery area for further monitoring. The patient was then transferred to the recovery area where they were observed for an appropriate period of time after the injection. The patient reported a VAS score of 6 prior to the procedure and a post-procedure VAS of 0. POST OP INSTRUCTIONS The patient was provided a Pain Log to continue to record their response to the target-specific procedure prior to follow-up visit with their referring physician. Additionally, specific post-injection care instructions and a contact number to our office were provided if concerns arise regarding possible complications associated with the procedure are suspected.
== END 2023-09-26 15:15 | disposition home or self-care (01) ==
LOC: RAD 13:34
PROVIDERS: Family Provider Family Medicine; PCP Family Medicine; Referring Provider Physical Medicine & Rehabilitation; Visit Provider Physical Medicine & Rehabilitation
DX: M51.17 Intervertebral disc disorders with radiculopathy, lumbosacral region (principal); M48.07 Spinal stenosis, lumbosacral region
CPT/HCPCS: 62323; 99151; 99152; J0702; J1100; J2250; J3010; J3490